=== PATIENT | male | born 1970 | race Caucasian/White ===

== ENCOUNTER → 2024-04-11 06:02 | Outpatient (REF) | payer OTHER, SELFPAY ==
[2024-04-11 08:45] LABS: % Basophils 0.8 % (0-2); % Eosinophils 2.1 % (0-6); % Lymphocytes 37.9 % (20.5-51.1); % Monocytes 9.5 % (1.7-9.3); % Neutrophils 49.7 % (42.2-75.2); Absolute Eosinophils 0.1 10^3/uL (0-0.7); Absolute Lymphocytes 1.8 10^3/uL (1.2-3.4); Absolute Monocytes 0.5 10^3/uL (0.1-0.6); Absolute Neutrophils 2.4 10^3/uL (1.4-6.5); Hematocrit 42.3 % (39.0-52.0); Hemoglobin 14.3 g/dL (13.0-18.0); Mean Corp Hgb Conc. 33.8 g/dL (33.0-37.0); Mean Corpuscular Hgb 30.5 pg (27.0-31.0); Mean Corpuscular Volume 90.2 fL (80.0-94.0); Mean Platelet Volume 9.9 fL (7.4-10.4); Nucleated Red Blood Cells % 0 % (-); Platelet Count 160 10^3/uL (130-400); Red Blood Cell Count 4.69 10^6/uL (4.70-6.10); Red Cell Dist. Width 12.3 % (11.5-14.5); White Blood Cell Count 4.9 10^3/uL (4.8-10.8)
[2024-04-11 08:46] LABS: ALT (SGPT) 31 U/L (0-50); AST (SGOT) 34 U/L (17-59); Albumin 4.1 g/dl (3.5-5.0); Alkaline Phosphatase 56 U/L (38-126); Blood Urea Nitrogen 21 mg/dl (9-20); Calcium 9.5 mg/dl (8.4-10.2); Carbon Dioxide 25 mmol/L (22-30); Chloride 108 mmol/L (98-107); Glucose 104 mg/dl (70-99); HDL Cholesterol 55 mg/dl; LDL Cholesterol, Calculated 132 mg/dl; Potassium 4.3 mmol/L (3.5-5.1); Sodium 142 mmol/L (135-145); Total Bilirubin 0.7 mg/dl (0.2-1.3); Total Cholesterol 196 mg/dl (50-199); Total Protein 6.9 g/dl (6.3-8.2); Triglyceride 47 mg/dl (10-149); Very Low Density Lipoprotein 9 mg/dl (0-30); eGFR > 60.00
[2024-04-11 09:28] LABS: PSA, Total - Screen 0.56 ng/ml (0.0-4.0); TSH Reflex To Free T4 2.22 uIU/ml (0.47-4.68)
== END ==
LOC: HWLAB 06:02
PROVIDERS: ATTENDING PHYSICIAN Nurse Practitioner Family
DX: Z00.00 Encounter for general adult medical examination without abnormal findings (principal); Z12.5 Encounter for screening for malignant neoplasm of prostate
CPT/HCPCS: 36415; 80053; 80061; 84443; 85025; G0103

== ENCOUNTER → 2024-10-27 06:31 | Day surgery (SDC) | payer OTHER, SELFPAY | LOC: GI 06:31 | PROVIDERS: ATTENDING PHYSICIAN Internal Medicine Gastroenterology | DX: Z12.11 Encounter for screening for malignant neoplasm of colon (principal); K57.30 Diverticulosis of large intestine without perforation or abscess without bleeding; K64.8 Other hemorrhoids | CPT/HCPCS: G0121 ==

== ENCOUNTER → 2025-04-12 06:04 | Outpatient (REF) | payer OTHER, SELFPAY ==
[2025-04-12 10:21] LABS: % Basophils 0.9 % (0-2); % Eosinophils 1.8 % (0-6); % Lymphocytes 39.2 % (20.5-51.1); % Monocytes 9.2 % (1.7-9.3); % Neutrophils 48.9 % (42.2-75.2); Absolute Eosinophils 0.1 10^3/uL (0-0.7); Absolute Lymphocytes 1.8 10^3/uL (1.2-3.4); Absolute Monocytes 0.4 10^3/uL (0.1-0.6); Absolute Neutrophils 2.2 10^3/uL (1.4-6.5); Hematocrit 41.2 % (39.0-52.0); Hemoglobin 14.2 g/dL (13.0-18.0); Mean Corp Hgb Conc. 34.5 g/dL (33.0-37.0); Mean Corpuscular Hgb 30.9 pg (27.0-31.0); Mean Corpuscular Volume 89.6 fL (80.0-94.0); Nucleated Red Blood Cells % 0 % (-); Platelet Count 159 10^3/uL (130-400); Red Cell Dist. Width 12.5 % (11.5-14.5); White Blood Cell Count 4.5 10^3/uL (4.8-10.8)
[2025-04-12 10:31] LABS: ALT (SGPT) 33 U/L (0-50); AST (SGOT) 29 U/L (17-59); Albumin 4.4 g/dl (3.5-5.0); Alkaline Phosphatase 40 U/L (38-126); Blood Urea Nitrogen 25 mg/dl (9-20); Calcium 9.2 mg/dl (8.4-10.2); Carbon Dioxide 26 mmol/L (22-30); Chloride 109 mmol/L (98-107); Glucose 102 mg/dl (70-99); HDL Cholesterol 51 mg/dl; LDL Cholesterol, Calculated 125 mg/dl; Potassium 4.3 mmol/L (3.5-5.1); Sodium 143 mmol/L (135-145); Total Bilirubin 0.9 mg/dl (0.2-1.3); Total Cholesterol 189 mg/dl (50-199); Total Protein 7.1 g/dl (6.3-8.2); Triglyceride 65 mg/dl (10-149); Very Low Density Lipoprotein 13 mg/dl (0-30); eGFR > 60.00
[2025-04-12 11:00] LABS: PSA, Total - Screen 0.55 ng/ml (0.0-4.0); TSH Reflex To Free T4 2.77 uIU/ml (0.47-4.68)
[2025-04-12 11:20] LABS: Glycohemoglobin (HgbA1c) 5.1 % (4.0-5.6)
== END ==
LOC: HWLAB 06:04
PROVIDERS: ATTENDING PHYSICIAN Nurse Practitioner Family
DX: R73.01 Impaired fasting glucose (principal); Z12.5 Encounter for screening for malignant neoplasm of prostate; Z00.00 Encounter for general adult medical examination without abnormal findings
CPT/HCPCS: 36415; 80053; 80061; 83036; 84443; 85025; G0103